=== PATIENT | male | born 1990 | race Caucasian/White ===

== ENCOUNTER 2019-06-05 09:30 | Emergency (ER) | payer MEDICAID ==
[~2019-06-05] VITALS: Ht 188 cm; Wt 124.0 kg
[~2019-06-05 09:30] MED LIST: AMOX500C2; HYDR1TAB69; IBUP-1573
[2019-06-05 09:55] VITALS: BP 156/100
[2019-06-05] MEDS ORDERED: PRED20TA PO (10:31)
== END 2019-06-05 10:43 | disposition home or self-care (01) ==
LOC: ER 09:31
DX: L25.8 Unspecified contact dermatitis due to other agents (principal); H57.89 Other specified disorders of eye and adnexa; Z79.899 Other long term (current) drug therapy
CPT/HCPCS: 99283

== ENCOUNTER 2019-06-13 09:52 | Emergency (ER) | payer MEDICAID ==
[~2019-06-13] VITALS: Ht 188 cm; Wt 122.1 kg
[2019-06-13 11:05] VITALS: BP 132/73
[2019-06-13] MEDS ORDERED: PRED20TA PO (11:42)
[2019-06-13] MEDS ORDERED: ALBU18HF2 INH (11:42)
[2019-06-13] MEDS ORDERED: DOXY100C43 PO (11:42)
== END 2019-06-13 11:57 | disposition home or self-care (01) ==
LOC: ER 09:53
DX: J20.9 Acute bronchitis, unspecified (principal); F17.210 Nicotine dependence, cigarettes, uncomplicated; Z79.899 Other long term (current) drug therapy
CPT/HCPCS: 99283; 99406

== ENCOUNTER 2021-10-31 13:51 | Emergency (ER) | payer MEDICAID ==
[~2021-10-31] VITALS: Ht 188 cm; Wt 118.2 kg
[~2021-10-31 13:51] MED LIST changes: +ALBU18HF2 INH
[2021-10-31 14:06] VITALS: BP 144/94
[2021-10-31] MEDS ORDERED: proparacaine 0.5% ophthalmic drops 15ml RIGHTEYE ONE (14:10)
[2021-10-31] MEDS ORDERED: erythromycin ophthalmic ointment 1gm tube RIGHTEYE ONE (14:10)
[2021-10-31] MEDS ORDERED: TETanus/Pertussis (Acell)/Diphther VAC/PF (Tdap-Adult) 0.5ml syringe IMVAC ONE (14:10)
[2021-10-31] MEDS ORDERED: fluorescein sod 1mg ophthalmic strip RIGHTEYE ONE (14:55)
== END 2021-10-31 15:31 | disposition home or self-care (01) ==
LOC: ER 13:51
DX: T20.10XA Burn of first degree of head, face, and neck, unspecified site, initial encounter (principal); F32.A Depression, unspecified; X11.8XXA Contact with other hot tap-water, initial encounter; Y93.89 Activity, other specified; Y92.89 Other specified places as the place of occurrence of the external cause; Y99.8 Other external cause status
CPT/HCPCS: 90471; 90715; 99283

== ENCOUNTER 2023-10-21 18:05 | Emergency (ER) | payer OTHER, MEDICAID ==
[~2023-10-21] VITALS: Ht 188 cm; Wt 100.0 kg
[2023-10-21 18:19] VITALS: BP 128/80; PULSE 71; RESP 18; TEMP 98.2; O2SAT 98
[2023-10-21] MEDS ORDERED: HYDR-3965 PO (19:21)
== END 2023-10-21 19:51 | disposition home or self-care (01) ==
LOC: ER 18:06
DX: S82.61XA Displaced fracture of lateral malleolus of right fibula, initial encounter for closed fracture (principal); Z79.899 Other long term (current) drug therapy; X50.1XXA Overexertion from prolonged static or awkward postures, initial encounter; Y93.89 Activity, other specified; Y92.89 Other specified places as the place of occurrence of the external cause; Y99.8 Other external cause status
CPT/HCPCS: 73600; 99283; L4360